=== PATIENT | male | born 1945 | race Caucasian/White ===

== ENCOUNTER 2018-12-19 02:31 | Emergency (ER) | payer MEDICARE ==
[~2018-12-19] VITALS: Ht 185.4 cm; Wt 93.0 kg
[~2018-12-19 02:31] MED LIST: ALBU0.084 NEB; ALLO300T2; AMLO5TAB15 PO; CITA20TA3 PO; GABA-339 PO; LEV250T PO; LEV50T PO; METF-370 PO; NOR10T; NOR10T PO; QUE25T PO; SIMV-8 PO; VENL150C2
[2018-12-19] MEDS ORDERED: ONDANSETRON HCL 4 MG/2 ML VIAL IV ONE (04:00)
[2018-12-19] MEDS ORDERED: MORPHINE SULFATE 4 MG/ML SYR/VIAL IV ONE (04:00)
[2018-12-19 04:18] LABS: Hemoglobin 12.4 g/dL (13.5-17.5); Mean Corpuscular Hemoglobin 30.6 pg (28.0-32.0); Red Blood Cells 4.06 10^6/uL (4.5-5.90)
[2018-12-19 04:21] LABS: Hematocrit 37.9 % (41.0-53.0); Mean Corpuscular Hgb Conc. 32.7 g/dL (32.0-36.0); Mean Corpuscular Volume 93.5 fL (80.0-100.0); Platelet Count (auto) 163 10^3/uL (140-450); Red Cell Distribution Width 13.9 % (11.8-14.3)
[2018-12-19 04:25] LABS: Basophils % (manual) 0 (0.0-2.0); Blast Cells 0; Metamyelocytes % 0; Myelocytes % 0; Promyelocytes % 0; Reactive Lymphocytes 0; White Blood Cell 63.4 10^3/uL (4.4-10.8)
[2018-12-19 04:27] LABS: Alanine Aminotransferase 14 U/L (16-61); Albumin 4.2 g/dL (3.4-5.0); Anion Gap 6 (5-15); Aspartate Aminotransferase 13 U/L (15-37); BUN/Creatinine Ratio 24.7; Blood Urea Nitrogen 22 mg/dL (7-18); Calcium 8.6 mg/dL (8.5-10.1); Carbon Dioxide 26 mmol/L (21-32); Chloride 101 mmol/L (98-107); GFR African American 108 mL/min; GFR Non-African American 89 mL/min; Glucose 94 mg/dL (74-106); Potassium 4.2 mmol/L (3.5-5.1); Sodium 133 mmol/L (136-145)
[2018-12-19 04:31] LABS: Alkaline Phosphatase 78 U/L (45-117); Bilirubin, Total 0.2 mg/dL (0.2-1.0)
[2018-12-19 06:31] LABS: Band Neutrophils % (manual) 3; Eosinophils % (manual) 1 (0-7); Lymphocytes % (manual) 68 (10.0-50.0); Monocytes % (manual) 4 (0-12)
[2018-12-19] MEDS ORDERED: HYDROcodone-ACET 5/325MG TAB PO ONE (07:45)
[2018-12-19 08:30] VITALS: BP 100/40
== END 2018-12-19 08:34 | disposition home or self-care (01) ==
LOC: ER 02:33
DX: S00.83XA Contusion of other part of head, initial encounter (principal); C91.10 Chronic lymphocytic leukemia of B-cell type not having achieved remission; J44.9 Chronic obstructive pulmonary disease, unspecified; E11.9 Type 2 diabetes mellitus without complications; E78.5 Hyperlipidemia, unspecified; I10 Essential (primary) hypertension; Z87.891 Personal history of nicotine dependence; Z79.2 Long term (current) use of antibiotics; Z79.899 Other long term (current) drug therapy; Z85.46 Personal history of malignant neoplasm of prostate; X58.XXXA Exposure to other specified factors, initial encounter; Y93.89 Activity, other specified; Y92.89 Other specified places as the place of occurrence of the external cause; Y99.8 Other external cause status
CPT/HCPCS: 36415; 70450; 80053; 84484; 85007; 85027; 93005; 96374; 96375; 99284; J2270; J2405

== ENCOUNTER 2021-02-23 11:17 | Inpatient (IN) | payer MEDICARE ==
[~2021-02-23] VITALS: Ht 182.9 cm; Wt 78.8 kg
[~2021-02-23 11:17] MED LIST changes: +AMLO-489 PO; -AMLO5TAB15 PO; -VENL150C2; +VENL150C3
[2021-02-23] MEDS ORDERED: MAGNESIUM SULFATE 1GM/100ML 100 ML IV ONE (11:30)
[2021-02-23] MEDS ORDERED: methylPREDNISolone SOD SUCC 125 MG/2 ML VL IV ONE (11:30)
[2021-02-23] MEDS ORDERED: methylPREDNISolone SOD SUCC 125 MG/2 ML VL ONE (11:30)
[2021-02-23] MEDS ORDERED: ALBUTEROL SULF 2.5 MG/0.5ML(0.5%) NEB SOLN NEB ONE (11:45)
[2021-02-23] MEDS ORDERED: dilTIAZem HCL 60 MG TAB PO ONE (12:15)
[2021-02-23] MEDS ORDERED: dilTIAZem 125mg/125ml BAG KIT 125 ML IV ONE (12:15)
[2021-02-23 12:28] LABS: Hematocrit 43.5 % (41.0-53.0); Hemoglobin 14.1 g/dL (13.5-17.5); Mean Corpuscular Hemoglobin 30.3 pg (28.0-32.0); Mean Corpuscular Hgb Conc. 32.5 g/dL (32.0-36.0); Mean Corpuscular Volume 93.4 fL (80.0-100.0); Red Blood Cells 4.65 10^6/uL (4.5-5.90); Red Cell Distribution Width 16.3 % (11.8-14.3); White Blood Cell 10.4 10^3/uL (4.4-10.8)
[2021-02-23 12:31] LABS: Basophils % (manual) 0 (0.0-2.0); Blast Cells 0; Eosinophils % (manual) 0 (0-7); Metamyelocytes % 0; Myelocytes % 0; Promyelocytes % 0; Reactive Lymphocytes 0
[2021-02-23 13:00] VITALS: BP 130/79
[2021-02-23 13:11] LABS: Band Neutrophils % (manual) 3; Lymphocytes % (manual) 20 (10.0-50.0); Monocytes % (manual) 9 (0-12)
[2021-02-23 13:55] LABS: Albumin 2.8 g/dL (3.4-5.0); Magnesium 1.8 mg/dL (1.6-2.6); Potassium 3.5 mmol/L (3.5-5.1)
[2021-02-23 14:05] LABS: INR 1.2 (0.9-1.15); Partial Thromboplastin Time 33.3 sec (23.6-33.0)
[2021-02-23] MEDS ORDERED: HYDROcodone-ACET 5/325MG TAB PO ONE (14:15)
[2021-02-23 14:27] VITALS: BP 121/70
[2021-02-23 14:28] LABS: BUN/Creatinine Ratio 8.9; Bilirubin, Total 0.4 mg/dL (0.2-1.0); Total Protein 6.4 g/dL (6.4-8.2)
[2021-02-23 16:00] VITALS: BP 130/79
[2021-02-23] MEDS: SODIUM CHLORIDE 0.9% 1,000 ML IV SCH (16:00)
[2021-02-23] MEDS ORDERED: NITROGLYCERIN 0.4 MG SL TAB SL PRN (16:00)
[2021-02-23] MEDS ORDERED: ACETAMINOPHEN 500 MG TAB PO PRN (16:00)
[2021-02-23] MEDS: DOXYCYCLINE 100MG/250ML 250 ML IV SCH (16:00)
[2021-02-23] MEDS ORDERED: ONDANSETRON HCL 4 MG/2 ML VIAL IV PRN (16:00)
[2021-02-23] MEDS ORDERED: LACTULOSE 20Gm/30ML SOLN PO PRN (16:00)
[2021-02-23] MEDS ORDERED: traMADol HCL 50 MG TAB PO PRN (16:00)
[2021-02-23] MEDS ORDERED: MORPHINE SULFATE INJECTION 2 MG/ML SYRG IV PRN (16:00)
[2021-02-23] MEDS ORDERED: DEXTROSE (50%) 50ML SYRG IV PRN (16:15)
[2021-02-23] MEDS: InsuLIN REG 1unit/0.01ml Soln (100units/ml) SC SCH ×2 (17:00→22:00)
[2021-02-23] MEDS: ACCU-CHEK COMFORT CURVE STRIP VI SCH (17:13)
[2021-02-23] MEDS: ALBUTEROL SULF 2.5 MG/0.5ML(0.5%) NEB SOLN NEB SCH ×2 (18:01→23:57)
[2021-02-23] MEDS: IPRATROPIUM BROM 0.5 MG/2.5ML INH SOL NEB SCH ×2 (18:02→23:57)
[2021-02-23] MEDS: methylPREDNISolone SOD SUCC 40 MG/ML VL IV SCH (18:16)
[2021-02-23 18:42] VITALS: BP 95/58
[2021-02-23] MEDS: MORPHINE SULFATE INJECTION 2 MG/ML SYRG IV PRN (21:37)
[2021-02-23 21:50] VITALS: BP 116/77
[2021-02-23] MEDS: ATORVASTATIN 20 MG TAB PO SCH (22:00)
[2021-02-24] MEDS: CARVEDILOL 3.125 MG TAB PO SCH ×3 (00:08→21:07)
[2021-02-24] MEDS: ENOXAPARIN SOD 80 MG/0.8ML SYRINGE SC SCH ×3 (00:09→21:07)
[2021-02-24] MEDS: ACCU-CHEK COMFORT CURVE STRIP VI SCH ×5 (00:10→21:07)
[2021-02-24] MEDS: methylPREDNISolone SOD SUCC 40 MG/ML VL IV SCH ×5 (00:45→23:49)
[2021-02-24] MEDS: ALBUTEROL SULF 2.5 MG/0.5ML(0.5%) NEB SOLN NEB PRN ×2 (02:14→16:01)
[2021-02-24] MEDS ORDERED: DOXYCYCLINE 100MG/250ML 250 ML IV ONE (04:31)
[2021-02-24] MEDS: DOXYCYCLINE 100MG/250ML 250 ML IV SCH ×2 (04:37→16:46)
[2021-02-24] MEDS ORDERED: dilTIAZem 125mg/125ml BAG KIT 125 ML IV ONE (06:04)
[2021-02-24] MEDS: ALBUTEROL SULF 2.5 MG/0.5ML(0.5%) NEB SOLN NEB SCH ×3 (06:09→19:17)
[2021-02-24] MEDS: IPRATROPIUM BROM 0.5 MG/2.5ML INH SOL NEB SCH ×3 (06:09→19:17)
[2021-02-24] MEDS: SODIUM CHLORIDE 0.9% 1,000 ML IV SCH ×2 (06:31→18:40)
[2021-02-24] MEDS: InsuLIN REG 1unit/0.01ml Soln (100units/ml) SC SCH ×4 (06:53→21:19)
[2021-02-24] MEDS: MORPHINE SULFATE INJECTION 2 MG/ML SYRG IV PRN (06:58)
[2021-02-24 08:40] LABS: Basophils # (auto) 0 10 ^3/uL (0-0.2); Basophils % (auto) 0.2 % (0.0-2.0); Eosinophils # (auto) 0 10 ^3/uL (0-0.8); Hematocrit 38.8 % (41.0-53.0); Hemoglobin 12.4 g/dL (13.5-17.5); Lymphocytes # (auto) 0.5 10 ^3/uL (0.4-5.4); Mean Corpuscular Hemoglobin 29.3 pg (28.0-32.0); Mean Corpuscular Hgb Conc. 31.8 g/dL (32.0-36.0); Mean Corpuscular Volume 92.1 fL (80.0-100.0); Monocytes # (auto) 0.4 10 ^3/uL (0-1.3); Monocytes % (auto) 4.1 % (0.0-12.0); Neutrophils # (auto) 7.9 10 ^3/uL (1.6-8.6); Neutrophils % (auto) 89.7 % (37.0-80.0); Nucleated Red Blood Cells % 0.1 %; Red Blood Cells 4.22 10^6/uL (4.5-5.90); Red Cell Distribution Width 15.8 % (11.8-14.3); White Blood Cell 8.8 10^3/uL (4.4-10.8)
[2021-02-24 08:48] LABS: Albumin 2.5 g/dL (3.4-5.0); Potassium 3.5 mmol/L (3.5-5.1)
[2021-02-24 08:53] LABS: BUN/Creatinine Ratio 18.2; Bilirubin, Total 0.3 mg/dL (0.2-1.0); Total Protein 5.9 g/dL (6.4-8.2)
[2021-02-24] MEDS ORDERED: HYDROcodone-ACET 10/325MG TAB PO ONE (10:00)
[2021-02-24] MEDS ORDERED: AMIODARONE 450mg/250ml AE 250 ML IV SCH ×2 (10:00→16:00)
[2021-02-24] MEDS ORDERED: AMIODARONE HCL 150 MG in D5W 5% 100 ML IV ONE (10:00)
[2021-02-24] MEDS: ASPirin 81 mg TAB PO SCH (10:24)
[2021-02-24] MEDS: PANTOPRAZOLE 40 MG TAB PO SCH (10:25)
[2021-02-24] MEDS ORDERED: GABA-339 PO (16:25)
[2021-02-24 17:00] VITALS: BP 106/73
[2021-02-24] MEDS: HYDROcodone-ACET 10/325MG TAB PO PRN ×2 (18:36→22:26)
[2021-02-24 20:00] VITALS: BP 117/76
[2021-02-24] MEDS: ATORVASTATIN 20 MG TAB PO SCH (21:07)
[2021-02-24 22:00] VITALS: BP 117/76
[2021-02-24] MEDS: AMIODARONE 450mg/250ml AE 250 ML IV SCH (23:49)
[2021-02-25] MEDS: IPRATROPIUM BROM 0.5 MG/2.5ML INH SOL NEB SCH ×4 (00:05→18:25)
[2021-02-25] MEDS: ALBUTEROL SULF 2.5 MG/0.5ML(0.5%) NEB SOLN NEB SCH ×3 (00:06→12:54)
[2021-02-25] MEDS: HYDROcodone-ACET 10/325MG TAB PO PRN ×3 (02:28→16:35)
[2021-02-25] MEDS: DOXYCYCLINE 100MG/250ML 250 ML IV SCH ×2 (03:53→16:04)
[2021-02-25] MEDS: SODIUM CHLORIDE 0.9% 1,000 ML IV SCH (03:53)
[2021-02-25 05:00] VITALS: BP 118/81
[2021-02-25] MEDS: methylPREDNISolone SOD SUCC 40 MG/ML VL IV SCH ×2 (06:02→21:50)
[2021-02-25] MEDS: ACCU-CHEK COMFORT CURVE STRIP VI SCH ×4 (06:08→21:52)
[2021-02-25] MEDS: InsuLIN REG 1unit/0.01ml Soln (100units/ml) SC SCH ×4 (06:08→23:57)
[2021-02-25] MEDS: MORPHINE SULFATE INJECTION 2 MG/ML SYRG IV PRN ×3 (06:34→20:08)
[2021-02-25 06:57] LABS: Basophils # (auto) 0.1 10 ^3/uL (0-0.2); Basophils % (auto) 0.3 % (0.0-2.0); Eosinophils # (auto) 0 10 ^3/uL (0-0.8); Hematocrit 42.9 % (41.0-53.0); Hemoglobin 13.6 g/dL (13.5-17.5); Lymphocytes # (auto) 0.8 10 ^3/uL (0.4-5.4); Lymphocytes % (auto) 3.7 % (10.0-50.0); Mean Corpuscular Hemoglobin 29.1 pg (28.0-32.0); Mean Corpuscular Hgb Conc. 31.7 g/dL (32.0-36.0); Mean Corpuscular Volume 91.7 fL (80.0-100.0); Monocytes # (auto) 0.5 10 ^3/uL (0-1.3); Monocytes % (auto) 2.4 % (0.0-12.0); Neutrophils # (auto) 19.8 10 ^3/uL (1.6-8.6); Neutrophils % (auto) 93.6 % (37.0-80.0); Red Blood Cells 4.68 10^6/uL (4.5-5.90); Red Cell Distribution Width 16.1 % (11.8-14.3); White Blood Cell 21.2 10^3/uL (4.4-10.8)
[2021-02-25 08:15] VITALS: BP 127/84
[2021-02-25] MEDS: ASPirin 81 mg TAB PO SCH (08:50)
[2021-02-25] MEDS: ENOXAPARIN SOD 80 MG/0.8ML SYRINGE SC SCH ×2 (08:52→21:52)
[2021-02-25] MEDS: PANTOPRAZOLE 40 MG TAB PO SCH (08:52)
[2021-02-25] MEDS: CARVEDILOL 3.125 MG TAB PO SCH (08:52)
[2021-02-25 09:00] VITALS: BP 127/84
[2021-02-25] MEDS: NICOTINE 21MG/24 HR TOPICAL PATCH TD SCH (11:54)
[2021-02-25 12:55] VITALS: BP 121/77
[2021-02-25] MEDS ORDERED: METOPROLOL TARTRATE 50 MG TAB PO ONE (13:15)
[2021-02-25] MEDS: GABAPENTIN 300 MG CAP PO SCH ×2 (14:36→21:51)
[2021-02-25 17:00] VITALS: BP 109/81
[2021-02-25] MEDS: AMIODARONE 450mg/250ml AE 250 ML IV SCH (17:28)
[2021-02-25] MEDS: LEVALBUTEROL HCL 1.25 MG/3 ML NEB NEB SCH (18:25)
[2021-02-25] MEDS: BUDESONIDE (INHALATION) 0.5 MG/2 ML NEB NEB SCH (18:26)
[2021-02-25] MEDS: ATORVASTATIN 20 MG TAB PO SCH (21:50)
[2021-02-25] MEDS: METOPROLOL TARTRATE 50 MG TAB PO SCH (21:51)
[2021-02-25 22:00] VITALS: BP 106/73
[2021-02-26] MEDS: DOXYCYCLINE 100MG/250ML 250 ML IV SCH ×2 (04:33→16:53)
[2021-02-26] MEDS: MORPHINE SULFATE INJECTION 2 MG/ML SYRG IV PRN ×5 (04:35→18:04)
[2021-02-26 05:00] VITALS: BP 112/79
[2021-02-26] MEDS: AMIODARONE 450mg/250ml AE 250 ML IV SCH (05:45)
[2021-02-26] MEDS: ACCU-CHEK COMFORT CURVE STRIP VI SCH ×4 (06:12→22:22)
[2021-02-26] MEDS: GABAPENTIN 300 MG CAP PO SCH ×3 (06:12→22:22)
[2021-02-26] MEDS: InsuLIN REG 1unit/0.01ml Soln (100units/ml) SC SCH ×4 (06:23→22:00)
[2021-02-26] MEDS: IPRATROPIUM BROM 0.5 MG/2.5ML INH SOL NEB SCH ×4 (06:27→19:04)
[2021-02-26] MEDS: LEVALBUTEROL HCL 1.25 MG/3 ML NEB NEB SCH ×4 (06:27→19:04)
[2021-02-26] MEDS: BUDESONIDE (INHALATION) 0.5 MG/2 ML NEB NEB SCH ×2 (06:28→19:04)
[2021-02-26 08:20] VITALS: BP 118/69
[2021-02-26 09:00] VITALS: BP 118/69
[2021-02-26] MEDS ORDERED: DIGOXIN (250MCG/ML) 2 ML AMPULE IV ONE (09:15)
[2021-02-26] MEDS: ENOXAPARIN SOD 80 MG/0.8ML SYRINGE SC SCH ×2 (09:32→22:22)
[2021-02-26] MEDS: methylPREDNISolone SOD SUCC 40 MG/ML VL IV SCH ×2 (09:33→22:21)
[2021-02-26] MEDS: ASPirin 81 mg TAB PO SCH (09:33)
[2021-02-26] MEDS: NICOTINE 21MG/24 HR TOPICAL PATCH TD SCH (09:37)
[2021-02-26] MEDS: PANTOPRAZOLE 40 MG TAB PO SCH (09:38)
[2021-02-26] MEDS: AMIODARONE HCL 200 MG TAB PO SCH ×2 (09:39→22:21)
[2021-02-26] MEDS: METOPROLOL TARTRATE 50 MG TAB PO SCH ×2 (10:59→22:22)
[2021-02-26 11:36] LABS: Anion Gap 5 (5-15); BUN/Creatinine Ratio 39.4; Blood Urea Nitrogen 26 mg/dL (7-18); Calcium 8.2 mg/dL (8.5-10.1); Carbon Dioxide 29 mmol/L (21-32); Chloride 102 mmol/L (98-107); GFR African American 152 mL/min; GFR Non-African American 125 mL/min; Glucose 148 mg/dL (74-106); Magnesium 2.2 mg/dL (1.6-2.6); Potassium 4.5 mmol/L (3.5-5.1); Sodium 136 mmol/L (136-145)
[2021-02-26 12:26] LABS: Basophils # (auto) 0 10 ^3/uL (0-0.2); Basophils % (auto) 0.1 % (0.0-2.0); Eosinophils # (auto) 0 10 ^3/uL (0-0.8); Hematocrit 39.7 % (41.0-53.0); Hemoglobin 12.7 g/dL (13.5-17.5); Lymphocytes # (auto) 0.8 10 ^3/uL (0.4-5.4); Lymphocytes % (auto) 4.6 % (10.0-50.0); Mean Corpuscular Hemoglobin 29.1 pg (28.0-32.0); Mean Corpuscular Hgb Conc. 31.9 g/dL (32.0-36.0); Mean Corpuscular Volume 91.1 fL (80.0-100.0); Monocytes # (auto) 0.7 10 ^3/uL (0-1.3); Monocytes % (auto) 3.6 % (0.0-12.0); Neutrophils # (auto) 16.4 10 ^3/uL (1.6-8.6); Neutrophils % (auto) 91.7 % (37.0-80.0); Nucleated Red Blood Cells % 0.1 %; Red Blood Cells 4.37 10^6/uL (4.5-5.90); Red Cell Distribution Width 16.3 % (11.8-14.3); White Blood Cell 17.9 10^3/uL (4.4-10.8)
[2021-02-26 12:52] VITALS: BP 125/85
[2021-02-26] MEDS ORDERED: POM PO (16:12)
[2021-02-26 17:02] VITALS: BP 151/71
[2021-02-26] MEDS: QUEtiapine FUMARATE 25 MG TAB PO SCH (17:15)
[2021-02-26 22:00] VITALS: BP 104/64
[2021-02-26] MEDS: ATORVASTATIN 20 MG TAB PO SCH (22:21)
[2021-02-27] MEDS: MORPHINE SULFATE INJECTION 2 MG/ML SYRG IV PRN ×4 (00:04→16:57)
[2021-02-27] MEDS: LEVALBUTEROL HCL 1.25 MG/3 ML NEB NEB SCH ×3 (01:43→18:10)
[2021-02-27] MEDS: IPRATROPIUM BROM 0.5 MG/2.5ML INH SOL NEB SCH ×4 (01:43→18:10)
[2021-02-27 05:00] VITALS: BP 117/70
[2021-02-27] MEDS: DOXYCYCLINE 100MG/250ML 250 ML IV SCH (05:00)
[2021-02-27] MEDS: GABAPENTIN 300 MG CAP PO SCH ×3 (05:00→21:25)
[2021-02-27] MEDS: ACCU-CHEK COMFORT CURVE STRIP VI SCH ×4 (06:35→21:26)
[2021-02-27] MEDS: InsuLIN REG 1unit/0.01ml Soln (100units/ml) SC SCH ×4 (06:39→21:29)
[2021-02-27] MEDS: ALBUTEROL SULF 2.5 MG/0.5ML(0.5%) NEB SOLN NEB PRN (07:20)
[2021-02-27] MEDS: BUDESONIDE (INHALATION) 0.5 MG/2 ML NEB NEB SCH ×2 (07:21→18:10)
[2021-02-27 07:25] LABS: Basophils # (auto) 0 10 ^3/uL (0-0.2); Basophils % (auto) 0.2 % (0.0-2.0); Eosinophils # (auto) 0 10 ^3/uL (0-0.8); Hemoglobin 13.8 g/dL (13.5-17.5); Lymphocytes # (auto) 0.6 10 ^3/uL (0.4-5.4); Lymphocytes % (auto) 3.7 % (10.0-50.0); Mean Corpuscular Hemoglobin 29.5 pg (28.0-32.0); Mean Corpuscular Volume 92.2 fL (80.0-100.0); Monocytes # (auto) 0.5 10 ^3/uL (0-1.3); Neutrophils % (auto) 93.1 % (37.0-80.0); Nucleated Red Blood Cells % 0.1 %; Red Blood Cells 4.66 10^6/uL (4.5-5.90); Red Cell Distribution Width 16.1 % (11.8-14.3); White Blood Cell 17.2 10^3/uL (4.4-10.8)
[2021-02-27 09:00] VITALS: BP 124/81
[2021-02-27] MEDS: ASPirin 81 mg TAB PO SCH (10:18)
[2021-02-27] MEDS: predniSONE 20 MG TAB PO SCH (10:18)
[2021-02-27] MEDS: APIXABAN 5 MG TAB PO SCH ×2 (10:19→21:27)
[2021-02-27] MEDS: AMIODARONE HCL 200 MG TAB PO SCH ×2 (10:19→21:27)
[2021-02-27] MEDS: DIGOXIN 0.125 MG TAB PO SCH (10:19)
[2021-02-27] MEDS: PANTOPRAZOLE 40 MG TAB PO SCH (10:20)
[2021-02-27] MEDS: METOPROLOL TARTRATE 50 MG TAB PO SCH ×2 (10:20→23:31)
[2021-02-27] MEDS: NICOTINE 21MG/24 HR TOPICAL PATCH TD SCH (10:25)
[2021-02-27 12:38] VITALS: BP 142/81
[2021-02-27 17:11] VITALS: BP 155/86
[2021-02-27] MEDS: IBRUTINIB 420 MG PO SCH (17:15)
[2021-02-27] MEDS: QUEtiapine FUMARATE 25 MG TAB PO SCH (18:26)
[2021-02-27] MEDS: HYDROcodone-ACET 10/325MG TAB PO PRN (20:19)
[2021-02-27] MEDS: DOXYCYCLINE 100 MG TAB/CAP PO SCH (21:26)
[2021-02-27] MEDS: ATORVASTATIN 20 MG TAB PO SCH (21:27)
[2021-02-27 22:00] VITALS: BP 102/70
[2021-02-28] MEDS: HYDROcodone-ACET 10/325MG TAB PO PRN ×2 (00:23→09:25)
[2021-02-28] MEDS: LEVALBUTEROL HCL 1.25 MG/3 ML NEB NEB SCH ×2 (00:34→06:51)
[2021-02-28] MEDS: IPRATROPIUM BROM 0.5 MG/2.5ML INH SOL NEB SCH ×3 (00:34→13:00)
[2021-02-28] MEDS: MORPHINE SULFATE INJECTION 2 MG/ML SYRG IV PRN (04:32)
[2021-02-28 05:24] VITALS: BP 123/80
[2021-02-28] MEDS: InsuLIN REG 1unit/0.01ml Soln (100units/ml) SC SCH ×2 (06:10→11:30)
[2021-02-28] MEDS: ACCU-CHEK COMFORT CURVE STRIP VI SCH ×2 (06:10→13:28)
[2021-02-28] MEDS: GABAPENTIN 300 MG CAP PO SCH (06:11)
[2021-02-28] MEDS: BUDESONIDE (INHALATION) 0.5 MG/2 ML NEB NEB SCH (06:51)
[2021-02-28 09:00] VITALS: BP 126/78
[2021-02-28] MEDS: ASPirin 81 mg TAB PO SCH (09:24)
[2021-02-28] MEDS: predniSONE 20 MG TAB PO SCH (09:24)
[2021-02-28] MEDS: AMIODARONE HCL 200 MG TAB PO SCH (09:26)
[2021-02-28] MEDS: DIGOXIN 0.125 MG TAB PO SCH (09:27)
[2021-02-28] MEDS: METOPROLOL TARTRATE 50 MG TAB PO SCH (09:27)
[2021-02-28] MEDS: APIXABAN 5 MG TAB PO SCH (09:28)
[2021-02-28] MEDS: PANTOPRAZOLE 40 MG TAB PO SCH (09:28)
[2021-02-28] MEDS: DOXYCYCLINE 100 MG TAB/CAP PO SCH (09:28)
[2021-02-28] MEDS: NICOTINE 21MG/24 HR TOPICAL PATCH TD SCH (09:29)
[2021-02-28] MEDS: IBRUTINIB 420 MG PO SCH (09:30)
[2021-02-28] MEDS ORDERED: AMIO200T33 PO (11:11)
[2021-02-28] MEDS ORDERED: APIX5TAB PO (11:11)
[2021-02-28] MEDS ORDERED: MET50T PO (11:11)
[2021-02-28] MEDS ORDERED: DIGO1TAB48 PO (11:11)
[2021-02-28] MEDS ORDERED: PRED20TA2 PO (11:11)
[2021-02-28] MEDS ORDERED: DOX100T PO (11:11)
[2021-02-28 11:44] LABS: Basophils # (auto) 0 10 ^3/uL (0-0.2); Basophils % (auto) 0.1 % (0.0-2.0); Eosinophils # (auto) 0 10 ^3/uL (0-0.8); Eosinophils % (auto) 0.1 % (0.0-7.0); Hematocrit 44.1 % (41.0-53.0); Lymphocytes # (auto) 1.4 10 ^3/uL (0.4-5.4); Lymphocytes % (auto) 6.8 % (10.0-50.0); Mean Corpuscular Hemoglobin 28.6 pg (28.0-32.0); Mean Corpuscular Hgb Conc. 29.6 g/dL (32.0-36.0); Mean Corpuscular Volume 96.9 fL (80.0-100.0); Monocytes # (auto) 2.2 10 ^3/uL (0-1.3); Monocytes % (auto) 10.2 % (0.0-12.0); Neutrophils # (auto) 17.5 10 ^3/uL (1.6-8.6); Neutrophils % (auto) 82.8 % (37.0-80.0); Nucleated Red Blood Cells % 0.1 %; Red Blood Cells 4.56 10^6/uL (4.5-5.90); Red Cell Distribution Width 17.1 % (11.8-14.3); White Blood Cell 21.1 10^3/uL (4.4-10.8)
[2021-02-28 11:54] VITALS: BP 126/78
[2021-02-28] MEDS ORDERED: IMBRUVICA 420 MG PO SCH (16:30)
== END 2021-02-28 13:25 | disposition home or self-care (01) | DRG 291 ==
LOC: ER 11:17 → EDBD 11:17 → TELE-DOU 15:50 → OVERFLOW 02-24 08:02 → TELE-WESTW 02-24 15:05
PROVIDERS: ADMIT Internal Medicine; ATTEND Internal Medicine
PROC: 5A09357 Assistance with Respiratory Ventilation, Less than 24 Consecutive Hours, Continuous Positive Airway Pressure (ICD-10-PCS; principal; 2021-02-23)
PROC: 05HA33Z Insertion of Infusion Device into Left Brachial Vein, Percutaneous Approach (ICD-10-PCS; 2021-02-23)
PROC: B54NZZA Ultrasonography of Left Upper Extremity Veins, Guidance (ICD-10-PCS; 2021-02-23)
DX: I11.0 Hypertensive heart disease with heart failure (principal); I50.33 Acute on chronic diastolic (congestive) heart failure; J96.21 Acute and chronic respiratory failure with hypoxia; E43 Unspecified severe protein-calorie malnutrition; J44.1 Chronic obstructive pulmonary disease with (acute) exacerbation; C95.10 Chronic leukemia of unspecified cell type not having achieved remission; D68.9 Coagulation defect, unspecified; D68.69 Other thrombophilia; I48.0 Paroxysmal atrial fibrillation; F41.9 Anxiety disorder, unspecified; F32.A Depression, unspecified; M10.9 Gout, unspecified; E03.9 Hypothyroidism, unspecified; Z20.822 Contact with and (suspected) exposure to COVID-19; E11.51 Type 2 diabetes mellitus with diabetic peripheral angiopathy without gangrene; E11.42 Type 2 diabetes mellitus with diabetic polyneuropathy; R59.0 Localized enlarged lymph nodes; E78.5 Hyperlipidemia, unspecified; F17.210 Nicotine dependence, cigarettes, uncomplicated; Z79.01 Long term (current) use of anticoagulants; Z79.84 Long term (current) use of oral hypoglycemic drugs; Z82.49 Family history of ischemic heart disease and other diseases of the circulatory system; Z85.46 Personal history of malignant neoplasm of prostate; Z99.81 Dependence on supplemental oxygen; Z68.22 Body mass index [BMI] 22.0-22.9, adult
CPT/HCPCS: 36415; 36600; 71045; 71250; 80048; 80053; 82550; 82805; 82962; 83036; 83605; 83735; 83880; 84443; 84484; 85007; 85025; 85027; 85610; 85730; 87426; 93005; 93306; 93925; 94640; 94644; 94660; 96365; 96375; G0378; J1815; J3490; J7060

== ENCOUNTER 2023-05-12 09:54 | Inpatient (IN) | payer MEDICARE, OTHER ==
[~2023-05-12] VITALS: Ht 182.9 cm; Wt 76.0 kg
[~2023-05-12 09:54] MED LIST changes: +AMIO200T33 PO; -AMLO-489 PO; +AMLO1TAB22 PO; +APIX5TAB PO; +DIGO1TAB48 PO; +DOX100T PO; -LEV250T PO; +MET50T PO; -NOR10T PO; +POM PO; +PRED20TA2 PO; -SIMV-8 PO; +SIMV20TA20 PO
[2023-05-12 10:05] VITALS: PULSE 121; RESP 19; O2SAT 100
[2023-05-12] MEDS: SODIUM CHLORIDE 0.9% 1,000 ML IV ONE ×2 (10:40→19:00)
[2023-05-12] MEDS: dilTIAZem 25 MG/5 ML VIAL IV ONE (10:40)
[2023-05-12 10:53] LABS: Basophils # (auto) 0.1 10 ^3/uL (0-0.2); Basophils % (auto) 1.1 % (0.0-2.0); Eosinophils # (auto) 0 10 ^3/uL (0-0.8); Hematocrit 40.6 % (41.0-53.0); Lymphocytes # (auto) 0.8 10 ^3/uL (0.4-5.4); Lymphocytes % (auto) 6.6 % (10.0-50.0); Mean Corpuscular Hemoglobin 29.6 pg (28.0-32.0); Mean Corpuscular Volume 92.5 fL (80.0-100.0); Monocytes # (auto) 0.9 10 ^3/uL (0-1.3); Monocytes % (auto) 7.9 % (0.0-12.0); Neutrophils % (auto) 84.4 % (37.0-80.0); Nucleated Red Blood Cells % 0.1 %; Red Blood Cells 4.39 10^6/uL (4.5-5.90); Red Cell Distribution Width 16.6 % (11.8-14.3); White Blood Cell 11.8 10^3/uL (4.4-10.8)
[2023-05-12 11:06] LABS: Chloride 102 mmol/L (98-107); Potassium 4.7 mmol/L (3.5-5.1); Sodium 135 mmol/L (136-145)
[2023-05-12 11:07] LABS: Anion Gap 8 (5-15); Calcium 9.3 mg/dL (8.7-10.4); Carbon Dioxide 25 mmol/L (20-30)
[2023-05-12 11:12] LABS: BUN/Creatinine Ratio 22.5 (10.0-20.0); Blood Urea Nitrogen 20 mg/dL (9-23); Glucose 133 mg/dL (74-106)
[2023-05-12 11:13] LABS: Magnesium 1.9 mg/dL (1.6-2.6)
[2023-05-12] MEDS ORDERED: SODIUM CHLORIDE 0.9% 1,000 ML IV SCH (15:15)
[2023-05-12] MEDS ORDERED: IPRATROPIUM BROM 0.5 MG/2.5ML INH SOL NEB PRN (15:15)
[2023-05-12] MEDS ORDERED: DOCUSATE SOD 100 MG CAP PO PRN (15:15)
[2023-05-12] MEDS ORDERED: LEVALBUTEROL HCL 1.25 MG/3 ML NEB NEB PRN (15:15)
[2023-05-12] MEDS ORDERED: NITROGLYCERIN 0.4 MG SL TAB SL PRN (15:15)
[2023-05-12] MEDS ORDERED: DEXTROSE (50%) 50ML SYRG IV PRN (15:15)
[2023-05-12] MEDS ORDERED: ONDANSETRON HCL 4 MG/2 ML VIAL IV PRN (15:15)
[2023-05-12] MEDS ORDERED: ACETAMINOPHEN 325 MG TAB PO PRN (15:15)
[2023-05-12] MEDS ORDERED: METO25TA93 PO (15:33)
[2023-05-12] MEDS ORDERED: QUET50TA27 PO (15:33)
[2023-05-12] MEDS ORDERED: LEVO75TA6 PO (15:33)
[2023-05-12] MEDS ORDERED: HYDR-3682 PO (15:33)
[2023-05-12] MEDS ORDERED: dilTIAZem 125mg/125ml BAG KIT 100 ML IV SCH (15:45)
[2023-05-12 16:40] LABS: Urine Bacteria NONE SEEN /hpf (None Seen); Urine Blood 1+ /uL (Negative); Urine Clarity Clear (Clear); Urine Color Colorless (Yellow); Urine Hyaline Cast FEW /lpf (0 - 2); Urine Protein, UAD Negative (Negative); Urine Specific Gravity 1.012 (1.001-1.035); Urine Urobilinogen Normal (Negative); Urine WBC <1 /hpf (0 - 3); Urine pH 5.5 (5.0-8.0)
[2023-05-12 17:40] VITALS: O2SAT 95
[2023-05-12] MEDS: cefTRIAXone 1GM/50ML D5W 50 ML IV ONE (18:43)
[2023-05-12] MEDS: AMIODARONE BOLUS KIT 100 ML IV ONE (18:46)
[2023-05-12 19:35] VITALS: BP 120/51; PULSE 124; RESP 16; TEMP 97.9; O2SAT 95
[2023-05-12] MEDS: AMIODARONE 450mg/250ml AE 250 ML IV SCH (19:48)
[2023-05-12] MEDS: AZITHROMYCIN 500MG/ 250ML 250 ML IV ONE (19:57)
[2023-05-12] MEDS: MAGNESIUM SULFATE 1GM/100ML 100 ML IV SCH (20:00)
[2023-05-12] MEDS: ACCU-CHEK COMFORT CURVE STRIP VI SCH (20:03)
[2023-05-12] MEDS: InsuLIN REG 1unit/0.01ml Soln (100units/ml) SC SCH (20:03)
[2023-05-12 21:00] VITALS: PULSE 112; RESP 12; O2SAT 96
[2023-05-12] MEDS: PANTOPRAZOLE 40 MG/10 ML VIAL INJ IV SCH (23:47)
[2023-05-12] MEDS: DIGOXIN 0.25 MG TAB PO SCH (23:53)
[2023-05-13] MEDS: MAGNESIUM SULFATE 1GM/100ML 100 ML IV SCH (00:04)
[2023-05-13] MEDS: AMIODARONE 450mg/250ml AE 250 ML IV SCH (00:19)
[2023-05-13 06:28] LABS: Basophils # (auto) 0.1 10 ^3/uL (0-0.2); Basophils % (auto) 1.3 % (0.0-2.0); Eosinophils # (auto) 0 10 ^3/uL (0-0.8); Eosinophils % (auto) 0.3 % (0.0-7.0); Hematocrit 38.6 % (41.0-53.0); Hemoglobin 12.8 g/dL (13.5-17.5); Lymphocytes % (auto) 9.7 % (10.0-50.0); Mean Corpuscular Hemoglobin 30.1 pg (28.0-32.0); Mean Corpuscular Hgb Conc. 33.2 g/dL (32.0-36.0); Mean Corpuscular Volume 90.5 fL (80.0-100.0); Monocytes # (auto) 0.9 10 ^3/uL (0-1.3); Monocytes % (auto) 9.2 % (0.0-12.0); Neutrophils # (auto) 7.8 10 ^3/uL (1.6-8.6); Neutrophils % (auto) 79.5 % (37.0-80.0); Red Blood Cells 4.26 10^6/uL (4.5-5.90); Red Cell Distribution Width 16.2 % (11.8-14.3); White Blood Cell 9.9 10^3/uL (4.4-10.8)
[2023-05-13 06:35] LABS: INR 1.29 (0.9-1.15); Prothrombin Time 13.3 sec (9.3-11.8)
[2023-05-13 06:44] LABS: Albumin 3.9 g/dL (3.2-4.8); Alkaline Phosphatase 144 U/L (46-116); Anion Gap 7 (5-15); Aspartate Aminotransferase 20 U/L (13-40); BUN/Creatinine Ratio 15.5 (10.0-20.0); Blood Urea Nitrogen 11 mg/dL (9-23); Calcium 9.1 mg/dL (8.5-10.1); Carbon Dioxide 24 mmol/L (20-30); Chloride 106 mmol/L (98-107); Glucose 82 mg/dL (74-106); Potassium 3.2 mmol/L (3.5-5.1); Sodium 137 mmol/L (136-145)
[2023-05-13 06:45] LABS: Bilirubin, Total 0.7 mg/dL (0.2-1.0); Total Protein 5.6 g/dL (5.7-8.2)
[2023-05-13 06:47] LABS: Alanine Aminotransferase < 9 U/L (7-40)
[2023-05-13 07:26] VITALS: O2SAT 96
[2023-05-13 07:40] VITALS: PULSE 112; RESP 16; O2SAT 96
[2023-05-13] MEDS: cefTRIAXone 1GM/50ML D5W 50 ML IV SCH (09:19)
[2023-05-13] MEDS: LEVOTHYROXINE SODIUM 50 MCG TAB PO SCH (10:53)
[2023-05-13] MEDS: CITALOPRAM HYDROBR 20 MG TAB PO SCH (10:53)
[2023-05-13] MEDS: AZITHROMYCIN 500MG/ 250ML 250 ML IV SCH (10:54)
[2023-05-13] MEDS: QUEtiapine FUMARATE 25 MG TAB PO SCH (10:54)
[2023-05-13] MEDS: METOPROLOL SUCCINATE XL 50 MG TAB PO SCH (10:54)
[2023-05-13] MEDS: IMBRUVICA 420 MG PO SCH (11:07)
[2023-05-13] MEDS: POTASSIUM CHL 20MEQ/100ML 100 ML IV SCH (13:13)
[2023-05-13] MEDS: GABAPENTIN 400 MG CAP PO SCH (15:31)
[2023-05-13] MEDS: hydrOXYzine 25 MG TAB or CAP PO SCH (15:31)
[2023-05-13] MEDS: HYDROcodone-ACET 5/325MG TAB PO PRN (17:37)
[2023-05-13] MEDS: ATORVASTATIN 20 MG TAB PO SCH (18:15)
[2023-05-13 19:30] VITALS: PULSE 60; RESP 21; O2SAT 98
[2023-05-13 20:40] VITALS: O2SAT 95
[2023-05-13] MEDS: MORPHINE SULFATE INJ 2 MG/ml SYRG IV PRN (22:19)
[2023-05-14] VITALS (8 sets, daily range): BP systolic 106–124; BP diastolic 62–85; PULSE 77–102; RESP 16–20; TEMP 36.6; O2SAT 94–100
[2023-05-14 06:21] LABS: Basophils # (auto) 0.1 10 ^3/uL (0-0.2); Eosinophils # (auto) 0.2 10 ^3/uL (0-0.8); Eosinophils % (auto) 2.3 % (0.0-7.0); Hematocrit 38.4 % (41.0-53.0); Hemoglobin 12.4 g/dL (13.5-17.5); Lymphocytes # (auto) 0.9 10 ^3/uL (0.4-5.4); Lymphocytes % (auto) 10.5 % (10.0-50.0); Mean Corpuscular Hemoglobin 29.7 pg (28.0-32.0); Mean Corpuscular Hgb Conc. 32.4 g/dL (32.0-36.0); Mean Corpuscular Volume 91.6 fL (80.0-100.0); Monocytes # (auto) 0.8 10 ^3/uL (0-1.3); Monocytes % (auto) 9.8 % (0.0-12.0); Neutrophils # (auto) 6.6 10 ^3/uL (1.6-8.6); Neutrophils % (auto) 76.4 % (37.0-80.0); Nucleated Red Blood Cells % 0.1 %; Red Blood Cells 4.19 10^6/uL (4.5-5.90); Red Cell Distribution Width 16.4 % (11.8-14.3); White Blood Cell 8.6 10^3/uL (4.4-10.8)
[2023-05-14 06:25] LABS: Calcium 8.7 mg/dL (8.5-10.1); Chloride 106 mmol/L (98-107); Potassium 3.2 mmol/L (3.5-5.1); Sodium 138 mmol/L (136-145)
[2023-05-14 06:26] LABS: Anion Gap 9 (5-15); Carbon Dioxide 23 mmol/L (20-30)
[2023-05-14 06:31] LABS: BUN/Creatinine Ratio 9.3 (10.0-20.0); Blood Urea Nitrogen 5 mg/dL (9-23); Glucose 78 mg/dL (74-106)
[2023-05-14] MEDS: POTASSIUM CHL 20 Meq TABLET PO ONE (11:01)
[2023-05-14] MEDS: MORPHINE SULFATE INJ 2 MG/ml SYRG IV PRN ×2 (12:25→12:39)
[2023-05-14] MEDS ORDERED: FLUT1AER17 INH (16:11)
[2023-05-14] MEDS ORDERED: PROC10TA6 PO (16:11)
[2023-05-14] MEDS: HYDROcodone-ACET 10/325MG TAB PO PRN (16:51)
[2023-05-15 05:00] VITALS: BP 102/65; PULSE 101; RESP 20; TEMP 98.5; O2SAT 98
[2023-05-15 06:34] VITALS: O2SAT 97
[2023-05-15 08:00] VITALS: BP 109/51; PULSE 90; PULSE 96; RESP 20; TEMP 98.2; O2SAT 98
[2023-05-15 09:00] VITALS: BP 109/51; PULSE 90; RESP 20; TEMP 98.2; O2SAT 98
[2023-05-15 10:00] VITALS: O2SAT 98
[2023-05-15] MEDS: AMIODARONE HCL 200 MG TAB PO ONE ×2 (10:15→12:17)
[2023-05-15] MEDS: SPIRONOLACTONE 25 MG TAB PO ONE ×2 (10:15→12:17)
[2023-05-15] MEDS ORDERED: EMPA1TAB PO (10:45)
[2023-05-15] MEDS ORDERED: SPIR25TA PO (10:47)
[2023-05-15] MEDS ORDERED: AMIO200T33 PO (10:47)
[2023-05-15] MEDS ORDERED: PANT40T PO (10:47)
[2023-05-15] MEDS ORDERED: PERCOT PO (10:47)
[2023-05-15] MEDS ORDERED: AZIT500T66 PO (10:52)
[2023-05-15 13:00] VITALS: BP 76/37; PULSE 83; RESP 18; TEMP 98; O2SAT 93
[2023-05-15] MEDS: SODIUM CHLORIDE 0.9% 1,000 ML IV ONE (13:41)
[2023-05-15] MEDS ORDERED: AMIODARONE HCL 200 MG TAB PO SCH (22:00)
[2023-05-16] MEDS ORDERED: SPIRONOLACTONE 25 MG TAB PO SCH (10:00)
[2023-05-16] MEDS ORDERED: EMPAGLIFLOZIN 10 MG TAB PO SCH (10:00)
== END 2023-05-15 16:20 | disposition home or self-care (01) | DRG 871 ==
LOC: ER 09:54 → EDBD 09:54 → TELE 15:25 → TELE-WESTW 05-14 09:51
PROVIDERS: ADMIT Nurse Practitioner Family; ATTEND Family Medicine
DX: A41.9 Sepsis, unspecified organism (principal); I50.23 Acute on chronic systolic (congestive) heart failure; J18.9 Pneumonia, unspecified organism; I48.20 Chronic atrial fibrillation, unspecified; C79.9 Secondary malignant neoplasm of unspecified site; K92.1 Melena; C95.91 Leukemia, unspecified, in remission; J44.0 Chronic obstructive pulmonary disease with (acute) lower respiratory infection; G89.29 Other chronic pain; C61 Malignant neoplasm of prostate; I11.0 Hypertensive heart disease with heart failure; E03.9 Hypothyroidism, unspecified; E78.5 Hyperlipidemia, unspecified; D50.0 Iron deficiency anemia secondary to blood loss (chronic); E11.649 Type 2 diabetes mellitus with hypoglycemia without coma; F17.210 Nicotine dependence, cigarettes, uncomplicated; F32.A Depression, unspecified; F41.9 Anxiety disorder, unspecified; Z82.49 Family history of ischemic heart disease and other diseases of the circulatory system; Z85.118 Personal history of other malignant neoplasm of bronchus and lung; Z85.46 Personal history of malignant neoplasm of prostate; Z85.828 Personal history of other malignant neoplasm of skin; Z99.81 Dependence on supplemental oxygen
CPT/HCPCS: 36415; 70450; 71045; 76700; 80048; 80053; 80162; 81001; 82270; 82962; 83735; 83880; 84443; 84484; 85025; 85610; 86850; 86900; 86901; 87040; 87045; 87070; 87077; 87081; 87186; 87205; 87427; 93005; 93306; 96361; 96365; 96368; 96375; C9113; G0378; J1815; J3480